=== PATIENT | female | born 1985 | race Caucasian/White ===

== ENCOUNTER 2017-08-10 23:58 | Emergency (ER) | payer MEDICAID ==
--- NOTE | 2017-08-11 00:07 | EDM.PDOC ---
ED HPI GENERAL MEDICAL PROBLEM - General Chief Complaint: ENT Problem Stated Complaint: right jaw/facial pain Time Seen by Provider: 08/11/17 00:00 Source of Information: Reports: Patient, RN, RN Notes Reviewed History Limitations: Reports: No Limitations - History of Present Illness Onset Date: 08/08/17 Duration: Constant Location: Reports: Face - Related Data Allergies Allergy/AdvReac Type Severity Reaction Status Date / Time No Known Allergies Allergy Verified 08/10/17 23:59 Home Meds: Home Meds Levonorgestrel [Mirena] 1 each IY ASDIRECTED 08/31/16 [History] Phentermine HCl 30 mg PO DAILY 08/10/17 [History] Topiramate [Topamax] 50 mg PO BID 08/10/17 [History] Past Medical History Psychiatric History: Reports: Addiction Social & Family History - Family History Family Medical History: Noncontributory - Tobacco Use Smoking Status *Q: Current Every Day Smoker Tobacco Use Within Last Twelve Months: Cigarettes Years of Tobacco use: 12 Packs/Tins Daily: 0.5 Smoking Cessation Information Provided To Patient: Patient Refused - Recreational Drug Use Recreational Drug Use: Yes Drug Use in Last 12 Months: Yes Recreational Drug Type: Reports: Methamphetamine Other Recreational Drug Type: quit 4 days ago Recreational Drug Use Frequency: Daily ED ROS ENT - Review of Systems Review Of Systems: See Below Constitutional: Denies: Fever, Chills, Weakness HEENT: Reports: Dental Pain, Ear Pain. Denies: Sinus Problem, Throat Pain, Throat Swelling Respiratory: Denies: Shortness of Breath, Cough Cardiovascular: Denies: Chest Pain, Palpitations Skin: Reports: No Symptoms Neurological: Reports: No Symptoms ED EXAM, ENT - Physical Exam Exam: See Below Exam Limited By: No Limitations General Appearance: Alert, No Apparent Distress Ears: Normal External Exam, Normal Canal, Normal TMs Mouth/Throat: Dental Abcess (Molar #30 with complete fracture of tooth; severe gingivitis with overt periodontal disease; swelling of surrounding gum tissue), Dental Pain, Dental Tenderness, Dry Mucous Membrane Neck: No: Lymphadenopathy (L), Lymphadenopathy (R) Respiratory/Chest: No Respiratory Distress, Lungs Clear, Normal Breath Sounds Cardiovascular: Regular Rate, Rhythm Neurological: Alert, Oriented Skin: Warm, Dry, Intact, Normal Color, No Rash Course - Vital Signs Last Recorded V/S: Last Vital Signs Temp 36.1 C 08/11/17 00:00 Pulse 96 08/11/17 00:00 Resp 16 08/11/17 00:00 BP 158/109 H 08/11/17 00:00 Pulse Ox 98 08/11/17 00:00 - Orders/Labs/Meds Orders: Active Orders 24 hr Category Date Time Status traMADol [Take Home: traMADol 50 MG, 4 Tab Pack] Med 08/11/17 00:13 Once 2 packet PO ONETIME ONE Meds: Medications Discontinued Medications Generic Name Dose Route Start Last Admin Trade Name Jimy PRN Reason Stop Dose Admin Clindamycin Phosphate 900 mg 08/11/17 00:13 Cleocin IM 08/11/17 00:14 ONETIME ONE Departure - Departure Time of Disposition: 00:14 Disposition: Home, Self-Care 01 Condition: Good Clinical Impression: Dental abscess, Dental caries extending into dentin - Discharge Information Instructions: Dental Abscess, Dental Caries Referrals: Garret Gallegos PA-C [Ordering Only Provider] - Forms: ED Department Discharge Additional Instructions: 1. STAY WELL HYDRATED AND REST 2. USE TRAMADOL SPARINGLY THIS MEDICATION IS NOT REFILLABLE. 3. AVOID FOOD THAT IRRITATE YOUR TEETH 4. CALL YOUR DENTIST ON SUNDAY, YOU NEED TO HAVE TEETH EXTRACTED LUZ MARINA 5. SEE [facility] GALLE[facility]OS SYMPTOMS WARRANT 6. MAY TAKE TWO TYLENOL OR FOUR ADVIL EVERY 4 HOURS NEEDED - Problem List Review Problem List Initiated/Reviewed/Updated: Yes - My Orders Last 24 Hours: My Active Orders 08/11/17 00:13 traMADol [Take Home: traMADol 50 MG, 4 Tab Pack] 2 packet PO ONETIME ONE - Assessment/Plan Last 24 Hours: My Active Orders 08/11/17 00:13 traMADol [Take Home: traMADol 50 MG, 4 Tab Pack] 2 packet PO ONETIME ONE
[2017-08-11 00:10] VITALS: BP 158/109
[2017-08-11] MEDS ORDERED: Take Home: traMADol 50 MG, 4 Tab Pack PO ONE (00:13)
[2017-08-11] MEDS ORDERED: Clindamycin Phosphate 900 MG/6 ML SDV IM ONE (00:13)
== END 2017-08-11 00:50 | disposition home or self-care (01) ==
LOC: VM.ED 23:58
DX: K04.7 Periapical abscess without sinus (principal); K02.9 Dental caries, unspecified; F17.210 Nicotine dependence, cigarettes, uncomplicated; Z79.899 Other long term (current) drug therapy
CPT/HCPCS: 96372; 99282; A9270; S0077

== ENCOUNTER 2017-08-18 11:53 | Emergency (ER) | payer MEDICAID ==
[2017-08-18] MEDS ORDERED: Sodium Chloride 0.9% 1,000 ML IV ONE (12:02)
[2017-08-18] MEDS ORDERED: Sodium Chloride 0.9% 10 ML Syringe FLUSH PRN (12:02)
[2017-08-18 12:11] VITALS: BP 156/97
--- NOTE | 2017-08-18 12:29 | EDM.PDOC ---
ED HPI GENERAL MEDICAL PROBLEM - General Chief Complaint: Chest Pain Stated Complaint: chest/shoulder pain Time Seen by Provider: 08/18/17 11:57 Source of Information: Reports: Patient History Limitations: Reports: No Limitations - History of Present Illness INITIAL COMMENTS - FREE TEXT/NARRATIVE: Patient comes in the afternoon with complaints of chest and shoulder pain. Patient was seen here last week by Osito it's related to some lower right tooth pain. She was given tramadol at that time and an IM injection of clindamycin. She was told to follow up with her dentist as soon as possible related to tooth decay. According to her statements she was googling last night problems that may arise due to tooth abscesses and cardiovascular problems. She states she became nervous and very anxious regarding some of the things she found. 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 She is a half a pack a day smoker. Patient denies any alcohol use. She also does indicate some additional pain to that lower right side stating that nothing has helped. She does also endorse a history of anxiety disorder. Onset: Sudden Duration: Getting Worse, Intermittent Location: Reports: Chest, Other (bilateral shoulders) Quality: Reports: Pressure Severity: Moderate Associated Symptoms: Reports: Chest Pain Bilateral Shoulder Pain Score (Numeric/FACES): 2 - Related Data Allergies Allergy/AdvReac Type Severity Reaction Status Date / Time No Known Allergies Allergy Verified 08/18/17 12:11 Home Meds: Home Meds Levonorgestrel [Mirena] 1 each IY ASDIRECTED 08/31/16 [History] Topiramate [Topamax] 50 mg PO BID 08/10/17 [History] Clindamycin HCl 1 tab PO TID 10 Days #30 capsule 08/11/17 [Rx] Past Medical History HEENT History: Reports: Other (See Below) Other HEENT History: Dental caries Psychiatric History: Reports: Addiction Social & Family History - Family History Family Medical History: Noncontributory - Tobacco Use Smoking Status *Q: Current Every Day Smoker Years of Tobacco use: 15 Packs/Tins Daily: 0.5 - Caffeine Use Caffeine Use: Reports: None - Recreational Drug Use Recreational Drug Use: Yes Drug Use in Last 12 Months: Yes Recreational Drug Type: Reports: Methamphetamine Other Recreational Drug Type: quit 4 days ago Recreational Drug Use Frequency: Daily Recreational Drug Last Use: 2016 ED ROS GENERAL - Review of Systems Review Of Systems: See Below Constitutional: Reports: No Symptoms HEENT: Reports: No Symptoms Respiratory: Reports: Pleuritic Chest Pain Cardiovascular: Reports: Chest Pain Endocrine: Reports: No Symptoms GI/Abdominal: Reports: No Symptoms : Reports: No Symptoms Musculoskeletal: Reports: Shoulder Pain Skin: Reports: No Symptoms Neurological: Reports: No Symptoms Psychiatric: Reports: Agitation, Anxiety Hematologic/Lymphatic: Reports: No Symptoms Immunologic: Reports: No Symptoms ED EXAM, GENERAL - Physical Exam Exam: See Below Exam Limited By: No Limitations General Appearance: Alert, WD/WN, Moderate Distress Eye Exam: Bilateral Eye: EOMI, PERRL Ears: Normal TMs Nose: Normal Inspection Throat/Mouth: No: Normal Teeth (last tooth on the lower right side is partially missing and fractured) Head: Atraumatic, Normocephalic Neck: Normal Inspection Respiratory/Chest: No Respiratory Distress, Lungs Clear, Normal Breath Sounds, No Accessory Muscle Use, Chest Non-Tender Cardiovascular: Normal Peripheral Pulses, Regular Rate, Rhythm, No Edema GI/Abdominal: Normal Bowel Sounds, Soft, Non-Tender Neurological: Alert, Oriented, CN II-XII Intact, Normal Cognition, No Motor/ Sensory Deficits Psychiatric: Normal Affect, Normal Mood Skin Exam: Warm, Dry, Intact Lymphatic: No Adenopathy ED CARDIOLOGY PROCEDURES - Additional/Other Procedure(s) Other (Free Text) Procedure(s): dental block performed with lidocaine to lower right jaw using sterile technique. 3 mL lidocaine injected to lower posterior jaw. Patient tolerated well. Course - Vital Signs Last Recorded V/S: Last Vital Signs Temp 35.9 C 08/18/17 11:55 Pulse 103 H 08/18/17 11:55 Resp 18 08/18/17 11:55 BP 156/97 H 08/18/17 11:55 Pulse Ox - Orders/Labs/Meds Orders: Active Orders 24 hr Category Date Time Status EKG Documentation Completion [RC] ROUTINE Care 08/18/17 12:02 Ordered Chest 1V Frontal [CR] Stat Exams 08/18/17 12:02 Ordered BASIC METABOLIC PANEL,BMP [CHEM] Stat Lab 08/18/17 12:10 Ordered C-REACTIVE PROTEIN [CHEM] Stat Lab 08/18/17 12:02 Ordered CBC WITH AUTO DIFF [HEME] Stat Lab 08/18/17 12:10 Ordered CK W CKMB [CHEM] Stat Lab 08/18/17 12:02 Ordered D-DIMER QUANTITATIVE [COAG] Stat Lab 08/18/17 12:02 Ordered DRUG SCREEN, URINE [URCHEM] Stat Lab 08/18/17 12:02 Uncollected INR,PT,PROTHROMBIN TIME [COAG] Stat Lab 08/18/17 12:02 Ordered PRO B-TYPE NATRIUR PEPT,BNPPRO [CHEM] Stat Lab 08/18/17 12:02 Ordered TROPONIN I [CHEM] Stat Lab 08/18/17 12:02 Ordered TSH ULTRASENSITIVE [CHEM] Stat Lab 08/18/17 12:02 Ordered Sodium Chloride 0.9% [Normal Saline] 1,000 ml Med 08/18/17 12:02 Ordered IV ONETIME Sodium Chloride 0.9% [Saline Flush] Med 08/18/17 12:02 Ordered 10 ml FLUSH ASDIRECTED PRN Saline Lock Insert [OM.PC] Routine Oth 08/18/17 12:02 Ordered Medication Orders Sodium Chloride (Normal Saline) 1,000 mls @ 999 mls/hr IV ONETIME ONE Stop: 08/18/17 13:02 Last Admin: 08/18/17 12:22 Dose: 999 mls/hr Sodium Chloride (Saline Flush) 10 ml FLUSH ASDIRECTED PRN PRN Reason: Keep Vein Open Meds: Medications Generic Name Dose Route Start Last Admin Trade Name Freq PRN Reason Stop Dose Admin Sodium Chloride 1,000 mls @ 999 mls/hr 08/18/17 12:02 08/18/17 12:22 Normal Saline IV 08/18/17 13:02 999 mls/hr ONETIME ONE Administration Sodium Chloride 10 ml 08/18/17 12:02 Saline Flush FLUSH ASDIRECTED PRN Keep Vein Open Departure - Departure Time of Disposition: 13:13 Disposition: Home, Self-Care 01 Condition: Good Clinical Impression: Anxiety and depression, Dental abscess, Dental caries extending into dentin Instructions: Panic Attacks, [id number], Dental Abscess, [id number] Forms: ED Department Discharge Additional Instructions: Keep your dentist appointment. Your tooth does need to be removed or crowned. Stay hydrated. The lidocaine can last for several hours. You may experience numbness to the other side of your face. This is a rare side effect. Your ECG and Chest X-ray are negative. Your chest pain could be related to anxiety. It may also be related to drug use if you are currently using meth or other substances like cocaine. These can cause chest pain. I did give you a prescription for NORCO. This is not refillable and should be carefully used to last until your dental appointment. Please call us with any questions or concerns in the meantime. - Problem List & Annotations (1) Anxiety and depression SNOMED Code(s): 209479939 Status: Acute Priority: Low Current Visit: Yes (2) Dental abscess SNOMED Code(s): 295518992 Code(s): K04.7 - PERIAPICAL ABSCESS WITHOUT SINUS Status: Acute Priority : Low Current Visit: Yes (3) Dental caries extending into dentin Status: Acute Priority: Low Current Visit: Yes - Problem List Review Problem List Initiated/Reviewed/Updated: Yes - My Orders Last 24 Hours: My Active Orders 08/18/17 12:02 EKG Documentation Completion [RC] ROUTINE Chest 1V Frontal [CR] Stat C-REACTIVE PROTEIN [CHEM] Stat CK W CKMB [CHEM] Stat D-DIMER QUANTITATIVE [COAG] Stat DRUG SCREEN, URINE [URCHEM] Stat INR,PT,PROTHROMBIN TIME [COAG] Stat PRO B-TYPE NATRIUR PEPT,BNPPRO [CHEM] Stat TROPONIN I [CHEM] Stat TSH ULTRASENSITIVE [CHEM] Stat Sodium Chloride 0.9% [Normal Saline] 1,000 ml IV ONETIME Sodium Chloride 0.9% [Saline Flush] 10 ml FLUSH ASDIRECTED PRN Saline Lock Insert [OM.PC] Routine 08/18/17 12:10 BASIC METABOLIC PANEL,BMP [CHEM] Stat CBC WITH AUTO DIFF [HEME] Stat - Assessment/Plan Last 24 Hours: My Active Orders 08/18/17 12:02 EKG Documentation Completion [RC] ROUTINE Chest 1V Frontal [CR] Stat C-REACTIVE PROTEIN [CHEM] Stat CK W CKMB [CHEM] Stat D-DIMER QUANTITATIVE [COAG] Stat DRUG SCREEN, URINE [URCHEM] Stat INR,PT,PROTHROMBIN TIME [COAG] Stat PRO B-TYPE NATRIUR PEPT,BNPPRO [CHEM] Stat TROPONIN I [CHEM] Stat TSH ULTRASENSITIVE [CHEM] Stat Sodium Chloride 0.9% [Normal Saline] 1,000 ml IV ONETIME Sodium Chloride 0.9% [Saline Flush] 10 ml FLUSH ASDIRECTED PRN Saline Lock Insert [OM.PC] Routine 08/18/17 12:10 BASIC METABOLIC PANEL,BMP [CHEM] Stat CBC WITH AUTO DIFF [HEME] Stat Assessment:: dental caries dental abscess anxiety Plan: Keep your dentist appointment. Your tooth does need to be removed or crowned. Stay hydrated. The lidocaine can last for several hours. You may experience numbness to the other side of your face. This is a rare side effect. Your ECG and Chest X-ray are negative. Your chest pain could be related to anxiety. It may also be related to drug use if you are currently using meth or other substances like cocaine. These can cause chest pain. I did give you a prescription for NORCO. This is not refillable and should be carefully used to last until your dental appointment. Please call us with any questions or concerns in the meantime.
[2017-08-18 12:50] LABS: CHLORIDE,CL 105 mmol/L (98-107); SODIUM,NA 140 mmol/L (136-145)
== END 2017-08-18 13:23 | disposition home or self-care (01) ==
LOC: VM.ED 11:53
DX: K04.7 Periapical abscess without sinus (principal); K02.9 Dental caries, unspecified; F41.8 Other specified anxiety disorders; F17.210 Nicotine dependence, cigarettes, uncomplicated
CPT/HCPCS: 36415; 64400; 71010; 80048; 82550; 83880; 84443; 84484; 85025; 85379; 85610; 86140; 93005; 96360; 99285; J7030

== ENCOUNTER 2023-05-10 14:24 | Emergency (ER) | payer BC, MEDICAID ==
[2023-05-10] MEDS ORDERED: LORazepam 2 MG/ML SDV IVPUSH ONE (14:35)
[2023-05-10 14:42] LABS: BASOPHILS ABSOLUTE AUTO 0.1 x10^3/uL (0.0-0.2); BASOPHILS PERCENT AUTO 0.8 % (0.2-1.2); EOSINOPHILS ABSOLUTE AUTO 0.5 x10^3/uL (0.0-0.5); HEMATOCRIT 40.5 % (33.0-47.0); HEMOGLOBIN 14.2 g/dL (12.0-16.0); IMMATURE GRAN ABSOLUTE AUTO 0.01 x10^3/uL (0.00-0.07); LYMPHOCYTES ABSOLUTE AUTO 3.1 x10^3/uL (1.0-4.8); LYMPHOCYTES PERCENT AUTO 30.6 % (25.0-50.0); MEAN CORPUSCULAR HGB CONC 35.1 g/dL (32.0-36.0); MEAN CORPUSCULAR VOLUME 82.7 fL (78.0-93.0); MONOCYTES ABSOLUTE AUTO 0.7 x10^3/uL (0.0-0.8); MONOCYTES PERCENT AUTO 6.6 % (2.0-11.0); NEUTROPHILS ABSOLUTE AUTO 5.8 x10^3/uL (1.8-7.7); NEUTROPHILS PERCENT AUTO 56.9 % (50.0-80.0); PLATELET COUNT,PLT 332 x10^3/uL (130-400); WHITE BLOOD CELL COUNT,WBC 10.2 x10^3/uL (4.0-10.0)
[2023-05-10 14:57] LABS: A/G RATIO 1.24; ALANINE AMINOTRANSFERASE,ALT 17 U/L (14-59); ALBUMIN 4.2 g/dL (3.4-5.0); ALKALINE PHOSPHATASE 59 U/L (46-116); ANION GAP 15.6 mmol/L (5-15); ASPARTATE AMNIOTRANSFERASE,AST 15 U/L (15-37); BILIRUBIN TOTAL 0.5 mg/dL (0.2-1.0); BLOOD UREA NITROGEN,BUN 10 mg/dL (7-18); C-REACTIVE PROTEIN 0.09 mg/dL (<=0.30); CALCIUM 9.2 mg/dL (8.5-10.1); CARBON DIOXIDE,CO2 24 mmol/L (21-32); CHLORIDE,CL 107 mmol/L (98-107); CREATINE KINASE,CK 74 U/L (26-192); CREATININE 0.8 mg/dL (0.55-1.02); ESTIMATED GFR 98 mL/min (>=60); GLUCOSE RANDOM 94 mg/dL (70-99); MAGNESIUM 1.9 mg/dL (1.8-2.4); POTASSIUM,K 3.6 mmol/L (3.5-5.1); PROTEIN TOTAL,TP 7.6 g/dL (6.4-8.2); SODIUM,NA 143 mmol/L (136-145)
[2023-05-10 16:28] VITALS: BP 98/56; PULSE 64
== END 2023-05-10 15:55 | disposition home or self-care (01) ==
LOC: VM.ED 14:24
DX: R40.4 Transient alteration of awareness (principal); Z87.891 Personal history of nicotine dependence
CPT/HCPCS: 70450; 80053; 80177; 82550; 83735; 85025; 86140; 96374; 99284; 99284-25; J2060

== ENCOUNTER 2025-03-01 13:23 | Emergency (ER) | payer BC, MEDICAID ==
[2025-03-01 14:13] LABS: BASOPHILS ABSOLUTE AUTO 0.1 x10^3/uL (0.0-0.2); BASOPHILS PERCENT AUTO 0.5 % (0.2-1.2); EOSINOPHILS ABSOLUTE AUTO 0.2 x10^3/uL (0.0-0.5); EOSINOPHILS PERCENT AUTO 1.7 % (0.0-4.0); HEMATOCRIT 40.4 % (33.0-47.0); HEMOGLOBIN 14.5 g/dL (12.0-16.0); IMMATURE GRAN ABSOLUTE AUTO 0.01 x10^3/uL (0.00-0.07); LYMPHOCYTES PERCENT AUTO 18.6 % (25.0-50.0); MEAN CORPUSCULAR HEMOGLOBIN 30.4 pg (26.0-32.0); MEAN CORPUSCULAR HGB CONC 35.9 g/dL (32.0-36.0); MEAN CORPUSCULAR VOLUME 84.7 fL (78.0-93.0); MONOCYTES ABSOLUTE AUTO 0.7 x10^3/uL (0.0-0.8); MONOCYTES PERCENT AUTO 6.7 % (2.0-11.0); NEUTROPHILS ABSOLUTE AUTO 7.8 x10^3/uL (1.8-7.7); NEUTROPHILS PERCENT AUTO 72.4 % (50.0-80.0); PLATELET COUNT,PLT 348 x10^3/uL (130-400); RED BLOOD CELL COUNT 4.77 x10^6/uL (4.00-5.50); WHITE BLOOD CELL COUNT,WBC 10.7 x10^3/uL (4.0-10.0)
[2025-03-01 14:45] LABS: A/G RATIO 1.29; ALANINE AMINOTRANSFERASE,ALT 22 U/L (14-59); ALKALINE PHOSPHATASE 75 U/L (46-116); ANION GAP 13.6 mmol/L (5-15); ASPARTATE AMNIOTRANSFERASE,AST 19 U/L (15-37); BILIRUBIN TOTAL 0.5 mg/dL (0.2-1.0); BLOOD UREA NITROGEN,BUN 8 mg/dL (7-18); CALCIUM 9.2 mg/dL (8.5-10.1); CARBON DIOXIDE,CO2 27 mmol/L (21-32); CHLORIDE,CL 103 mmol/L (98-107); CREATININE 1.1 mg/dL (0.55-1.02); ESTIMATED GFR 66 mL/min (>=60); GLUCOSE RANDOM 93 mg/dL (70-99); POTASSIUM,K 3.6 mmol/L (3.5-5.1); PROTEIN TOTAL,TP 7.1 g/dL (6.4-8.2); SODIUM,NA 140 mmol/L (136-145)
[2025-03-01 15:01] VITALS: BP 114/75; PULSE 91
[2025-03-04 19:06] LABS: LAMOTROGINE 7.1 ug/mL (3.0-15.0)
== END 2025-03-01 14:54 | disposition home or self-care (01) ==
LOC: VM.ED 13:23
DX: G40.909 Epilepsy, unspecified, not intractable, without status epilepticus (principal); Z88.8 Allergy status to other drugs, medicaments and biological substances; Z79.890 Hormone replacement therapy; Z79.899 Other long term (current) drug therapy
CPT/HCPCS: 36415; 80053; 80175; 85025; 99284

== ENCOUNTER 2025-04-09 06:35 | Emergency (ER) | payer BC ==
[2025-04-09] MEDS ORDERED: Sodium Chloride 0.9% 10 ML Syringe FLUSH PRN (06:52)
[2025-04-09 07:44] LABS: BASOPHILS PERCENT AUTO 0.6 % (0.2-1.2); EOSINOPHILS ABSOLUTE AUTO 0.3 x10^3/uL (0.0-0.5); EOSINOPHILS PERCENT AUTO 4.1 % (0.0-4.0); HEMATOCRIT 40.2 % (33.0-47.0); HEMOGLOBIN 13.8 g/dL (12.0-16.0); IMMATURE GRAN ABSOLUTE AUTO 0.01 x10^3/uL (0.00-0.07); LYMPHOCYTES PERCENT AUTO 31.3 % (25.0-50.0); MEAN CORPUSCULAR HEMOGLOBIN 30.2 pg (26.0-32.0); MEAN CORPUSCULAR HGB CONC 34.3 g/dL (32.0-36.0); MONOCYTES ABSOLUTE AUTO 0.4 x10^3/uL (0.0-0.8); MONOCYTES PERCENT AUTO 6.6 % (2.0-11.0); NEUTROPHILS ABSOLUTE AUTO 3.7 x10^3/uL (1.8-7.7); NEUTROPHILS PERCENT AUTO 57.2 % (50.0-80.0); PLATELET COUNT,PLT 300 x10^3/uL (130-400); RED BLOOD CELL COUNT 4.57 x10^6/uL (4.00-5.50); WHITE BLOOD CELL COUNT,WBC 6.4 x10^3/uL (4.0-10.0)
[2025-04-09 08:00] LABS: A/G RATIO 1.38; ALANINE AMINOTRANSFERASE,ALT 16 U/L (14-59); ALKALINE PHOSPHATASE 67 U/L (46-116); ASPARTATE AMNIOTRANSFERASE,AST 16 U/L (15-37); BILIRUBIN TOTAL 0.5 mg/dL (0.2-1.0); BLOOD UREA NITROGEN,BUN 14 mg/dL (7-18); CALCIUM 8.5 mg/dL (8.5-10.1); CARBON DIOXIDE,CO2 30 mmol/L (21-32); CHLORIDE,CL 104 mmol/L (98-107); EST CRCL DRUG DOSING (CG) 60.92 mL/min; GLUCOSE RANDOM 83 mg/dL (70-99); POTASSIUM,K 3.7 mmol/L (3.5-5.1); PROTEIN TOTAL,TP 6.9 g/dL (6.4-8.2); SODIUM,NA 141 mmol/L (136-145)
[2025-04-09 08:01] LABS: ANION GAP 10.7 mmol/L (5-15); ESTIMATED GFR 74 mL/min (>=60); ETHANOL BLOOD MEDICAL < 3 mg/dL (0-3)
[2025-04-09] MEDS: Ibuprofen 200 MG Tab PO STA (08:28)
[2025-04-09 08:34] LABS: AMPHETAMINES SCREEN, URINE POSITIVE (NEGATIVE); BARBITURATE SCREEN,URINE NEGATIVE (NEGATIVE); BENZODIAZEPINES SCREEN,URINE NEGATIVE (NEGATIVE); BUPRENORPHINE SCREEN,URINE NEGATIVE (NEGATIVE); COCAINE METABOLITES,URINE NEGATIVE (NEGATIVE); METHADONE SCREEN, URINE NEGATIVE (NEGATIVE); METHAMPHETAMINE SCREEN, URINE NEGATIVE (NEGATIVE); OXYCODONE SCREEN,URINE NEGATIVE (NEGATIVE); PCP SCREEN,URINE NEGATIVE (NEGATIVE); THC SCREEN,URINE 50 NG/ML NEGATIVE (NEGATIVE)
[2025-04-09 09:55] VITALS: BP 127/68; PULSE 72
== END 2025-04-09 09:00 | disposition home or self-care (01) ==
LOC: VM.ED 06:35
DX: G40.909 Epilepsy, unspecified, not intractable, without status epilepticus (principal); Z88.8 Allergy status to other drugs, medicaments and biological substances; Z79.890 Hormone replacement therapy; Z79.899 Other long term (current) drug therapy; W19.XXXA Unspecified fall, initial encounter
CPT/HCPCS: 36415; 70450; 70486; 80053; 80305; 80307; 81025; 83735; 84484; 85025; 93005; 99285; A9270; 93010; 99284

== ENCOUNTER 2025-09-19 03:19 | Emergency (ER) | payer BC ==
[2025-09-19 03:40] VITALS: BP 129/94; PULSE 110
[2025-09-19] MEDS: Ketorolac 30 MG/ML SDV IM ONE (03:56)
[2025-09-19] MEDS: Prochlorperazine 10 MG/2 ML SDV IM ONE (03:56)
== END 2025-09-19 04:04 | disposition home or self-care (01) ==
LOC: VM.ED 03:19 → SUPCPDRO 03:19 → VM.ED 04:04
DX: R51.9 Headache, unspecified (principal); Z88.8 Allergy status to other drugs, medicaments and biological substances; Z79.890 Hormone replacement therapy; Z86.69 Personal history of other diseases of the nervous system and sense organs
CPT/HCPCS: 96372; 99283; 99284; A9270; J0780; J1885